=== PATIENT | female | born 1985 | race Caucasian/White ===

== ENCOUNTER 2018-12-14 23:24 | Emergency (ER) | payer MEDICAID ==
[~2018-12-14] VITALS: Ht 147.3 cm; Wt 47.9 kg
[~2018-12-14 23:24] MED LIST: CLIN300C8 PO; OXYC-307 PO; PROM25SU34 PO
[2018-12-14 23:29] VITALS: BP 125/80
[2018-12-14] MEDS ORDERED: ONDA4TAB7 PO (23:32)
== END 2018-12-15 00:30 | disposition home or self-care (01) ==
LOC: ED 12-15 00:24
DX: S93.401A Sprain of unspecified ligament of right ankle, initial encounter (principal); Z90.710 Acquired absence of both cervix and uterus; V00.131A Fall from skateboard, initial encounter; Y93.51 Activity, roller skating (inline) and skateboarding; Y92.410 Unspecified street and highway as the place of occurrence of the external cause; Y99.8 Other external cause status
CPT/HCPCS: 99283

== ENCOUNTER 2018-12-18 13:51 | Emergency (ER) | payer MEDICAID ==
[~2018-12-18] VITALS: Ht 147.3 cm; Wt 47.9 kg
[~2018-12-18 13:51] MED LIST changes: +ONDA4TAB7 PO
[2018-12-18 13:55] VITALS: BP 157/86
[2018-12-18] MEDS ORDERED: LORazepam 1MG TABLET ONE (14:15)
[2018-12-18] MEDS ORDERED: OXYC5TAB3 PO (14:20)
[2018-12-18] MEDS ORDERED: LORazepam 1MG TABLET PO ONE (14:30)
--- NOTE | 2018-12-18 16:14 | NUR ---
Patient/Caregiver given discharge instructions and they have confirmed that they understand the instructions. Patient ambulatory with steady gait.
== END 2018-12-18 16:15 | disposition home or self-care (01) ==
LOC: ED 15:25
DX: F43.23 Adjustment disorder with mixed anxiety and depressed mood (principal); Z90.721 Acquired absence of ovaries, unilateral; F17.200 Nicotine dependence, unspecified, uncomplicated
CPT/HCPCS: 99284

== ENCOUNTER 2018-12-25 22:26 | Emergency (ER) | payer MEDICAID ==
[~2018-12-25] VITALS: Ht 147.3 cm; Wt 47.5 kg
[~2018-12-25 22:26] MED LIST changes: +OXYC5TAB3 PO
[2018-12-25] MEDS ORDERED: SODIUM CHLORIDE FLUSH 10ML SYR IVF ONE (23:00)
[2018-12-25 23:20] LABS: BASOPHILS # (AUTO) 0.03 x10^3/uL (0-0.1); BASOPHILS % (AUTO) 0 % (0-1); EOSINOPHILS % (AUTO) 2 % (1-7); LYMPHOCYTES # (AUTO) 2.32 x10^3/uL (1-3.4); LYMPHOCYTES % (AUTO) 24 % (22-44); MD NO; MEAN CORPUSCULAR HEMOGLOBIN 28.7 pg (27.0-34.8); MEAN CORPUSCULAR HGB CONC 32.8 g/dL (32.4-35.8); MEAN CORPUSCULAR VOLUME 87.4 fL (80-100); MEAN PLATELET VOLUME 7.4 fL (7.4-10.4); MONOCYTES # (AUTO) 0.59 x10^3/uL (0.2-0.8); MONOCYTES % (AUTO) 6 % (2-9); NEUTROPHILS # (AUTO) 6.71 x10^3/uL (1.8-6.8); NEUTROPHILS % (AUTO) 68 % (42-75); PLATELET COUNT 397 x10^3/uL (130-400); RED BLOOD COUNT 4.84 x10^6/uL (3.82-5.3); RED CELL DISTRIBUTION WIDTH 14.6 % (9.6-15.2)
--- NOTE | 2018-12-25 23:21 | NUR ---
PT BIB EMS FROM [facility]. PT RPTS THAT SHE HAD GONE TO [place] TO SEEK HELP WITH DEPRESSION. PT STATES HER COMMITTED SUICIDE LAST MONDAY. PT ADMITS TO DRINKING TODAY BUT DENIES CHRONIC ETOH ABUSE. STATES THAT WHILE IN THE PROCESS OF BEING ADMITTED TO [facility] SHE BECAME +N/V AND FELT THAT SHE NEEDED TO COME TO THE HOSPITAL. [facility] SENT PT TO BE MEDICALLY CLEARED. PT DENIES THOUGHTS OF SI OR ANY HX OF SI. PT AMBULATED UPRIGHT STEADY GAIT TO BATHROOM AND PROVIDED URINE SAMPLE. DR AYALA INTERVIEWED PT AND IS NOT PLACING PT ON LEGAL HOLD AT THIS TIME. CALL LIGHT W/I REACH.
[2018-12-25 23:30] LABS: ALANINE AMINOTRANSFERASE 23 U/L (12-78); ALBUMIN 3.8 g/dL (3.4-5.0); ANION GAP 9 mmol/L (5-15); CALCIUM 8.5 mg/dL (8.5-10.1); CHLORIDE 109 mmol/L (98-107); CREATININE 0.62 mg/dL (0.55-1.02); SALICYLATE LEVEL 2.4 mg/dL (2.8-20.0)
[2018-12-25 23:34] LABS: ALKALINE PHOSPHATASE 61 U/L (45-117); BILIRUBIN,TOTAL 0.2 mg/dL (0.2-1.0); TOTAL PROTEIN 7.8 g/dL (6.4-8.2)
[2018-12-25 23:50] LABS: MICROSCOPIC AUTO
[2018-12-25 23:51] LABS: AMPHETAMINE SCREEN, URINE Negative (Negative); BARBITURATE SCREEN, URINE Negative (Negative); BENZODIAZEPINE SCREEN, URINE Negative (Negative); CANNABINOID SCREEN, URINE Positive (Negative); COCAINE SCREEN, URINE Negative (Negative); METHADONE SCREEN, URINE Negative (Negative); OPIATE SCREEN, URINE Negative (Negative)
[2018-12-25] MEDS ORDERED: LORazepam 1MG TABLET ONE (23:52)
[2018-12-25] MEDS ORDERED: ONDANSETRON ODT 4 MG ONE (23:52)
--- NOTE | 2018-12-25 23:55 | NUR ---
PT MED NOTED FOR ANXIETY AND NAUSEA, WARM BLANKET AND PILLOW PROVIDED. LIGHTS OFF IN ROOM TO PROMOTE REST.
[2018-12-25 23:56] LABS: CULTURE INDICATED? YES
[2018-12-26] MEDS ORDERED: ONDANSETRON ODT 4 MG PO ONE
[2018-12-26] MEDS ORDERED: LORazepam 1MG TABLET PO ONE
[2018-12-26 00:34] VITALS: BP 107/65
--- NOTE | 2018-12-26 00:35 | NUR ---
PT STATED SHE FEELS MUCH BETTER AFTER MEDICATION. VSS AND STATED NO NEEDS AT THIS TIME. WILL CONTINUE TO MONITOR.
--- NOTE | 2018-12-26 01:11 | NUR ---
Patient/Caregiver given discharge instructions and they have confirmed that they understand the instructions. Patient ambulatory with steady gait. TAXI VOUCHER PROVIDED TO [facility]. I ALSO CALLED [facility] TO VERIFY THAT THEY STILL HAD CAPACITY TO ACCEPT A WALK IN.
== END 2018-12-26 01:13 | disposition home or self-care (01) ==
LOC: ED 12-26 01:00
DX: N30.00 Acute cystitis without hematuria (principal); F43.22 Adjustment disorder with anxiety; F17.200 Nicotine dependence, unspecified, uncomplicated; F41.9 Anxiety disorder, unspecified; R10.13 Epigastric pain; R53.83 Other fatigue; Z90.710 Acquired absence of both cervix and uterus; Z87.19 Personal history of other diseases of the digestive system
CPT/HCPCS: 36415; 80053; 80307; 81001; 83690; 85025; 87086; 99283; Q0162

== ENCOUNTER 2019-01-20 08:06 | Emergency (ER) | payer MEDICAID ==
[2019-01-20 08:09] VITALS: BP 102/72
== END 2019-01-20 09:25 | disposition home or self-care (01) ==
LOC: ED 09:01
DX: R21 Rash and other nonspecific skin eruption (principal); F41.9 Anxiety disorder, unspecified; Z90.710 Acquired absence of both cervix and uterus
CPT/HCPCS: 99283

== ENCOUNTER 2019-02-16 15:38 | Emergency (ER) | payer MEDICAID ==
[~2019-02-16] VITALS: Ht 147.3 cm; Wt 47.4 kg
[2019-02-16 15:43] VITALS: BP 129/87
== END 2019-02-16 16:04 | disposition home or self-care (01) ==
LOC: ED 15:49
DX: K02.9 Dental caries, unspecified (principal)
CPT/HCPCS: 99283

== ENCOUNTER 2019-04-10 08:34 | Inpatient (IN) | payer MEDICAID ==
[~2019-04-10] VITALS: Ht 147.3 cm; Wt 45.5 kg
[2019-04-10] MEDS: NICOTINE 14MG/24 HR PATCH.TD24 TD SCH (09:00)
[2019-04-10] MEDS ORDERED: POLYETHYLENE GLYCOL 17 GM PACKET PO PRN (09:00)
[2019-04-10] MEDS ORDERED: BISACODYL 10 MG SUPP PR PRN (09:00)
[2019-04-10] MEDS ORDERED: DOCUSATE 100 MG CAPSULE PO PRN (09:00)
[2019-04-10] MEDS ORDERED: ACETAMINOPHEN 325 MG TABLET PO PRN (09:00)
[2019-04-10 09:24] VITALS: BP 132/73
[2019-04-10] MEDS ORDERED: PLEASE ENTER HEIGHT AND WEIGHT MC SCH (09:30)
[2019-04-10] MEDS: ONDANSETRON ODT 4 MG PO PRN ×3 (10:06→20:44)
[2019-04-10] MEDS ORDERED: IBUPROFEN 200 MG TABLET PO PRN (10:30)
[2019-04-10] MEDS: LORazepam 1MG TABLET PO PRN ×2 (10:54→20:44)
[2019-04-10] MEDS: VENLAFAXINE 75 MG CAP ER PO SCH (10:55)
[2019-04-10] MEDS ORDERED: FOLIC ACID 5 MG/ML IM ONE (12:30)
[2019-04-10] MEDS ORDERED: LORazepam 0.5MG TABLET PO PRN (12:30)
[2019-04-10] MEDS ORDERED: LORazepam 2 MG/ML, 1ML IV PRN ×5 (12:30)
[2019-04-10] MEDS ORDERED: FOLIC ACID 1 MG TABLET PO ONE (12:30)
[2019-04-10] MEDS ORDERED: LORazepam 1MG TABLET PO PRN ×4 (12:30)
[2019-04-10] MEDS: THIAMINE 100MG TABLET PO SCH (13:01)
[2019-04-10] MEDS: MULTIVITAMINS/MINERALS TABLET PO SCH (13:01)
[2019-04-10 13:14] LABS: FREE T4 (FREE THYROXINE) 0.72 ng/dL (0.76-1.46)
[2019-04-10 15:27] VITALS: BP 144/86
[2019-04-10] MEDS: ACAMPROSATE 333 MG TABLET.DR PO SCH ×2 (15:34→20:44)
[2019-04-10] MEDS ORDERED: ONDA4TAB7 PO (15:46)
[2019-04-10] MEDS: OXYcodone IR 5MG TABLET PO PRN (18:02)
[2019-04-10 19:06] VITALS: BP 144/93
[2019-04-11] MEDS: ONDANSETRON ODT 4 MG PO PRN ×3 (02:49→15:15)
[2019-04-11] MEDS: LORazepam 1MG TABLET PO PRN ×5 (02:49→22:39)
[2019-04-11] MEDS: OXYcodone IR 5MG TABLET PO PRN ×3 (06:42→20:37)
[2019-04-11 07:28] VITALS: BP 121/78
[2019-04-11] MEDS: VENLAFAXINE 75 MG CAP ER PO SCH (08:21)
[2019-04-11] MEDS: ACAMPROSATE 333 MG TABLET.DR PO SCH ×4 (08:21→20:36)
[2019-04-11] MEDS: MULTIVITAMINS/MINERALS TABLET PO SCH (08:22)
[2019-04-11] MEDS: THIAMINE 100MG TABLET PO SCH (08:22)
[2019-04-11] MEDS: NICOTINE 14MG/24 HR PATCH.TD24 TD SCH (08:22)
[2019-04-11] MEDS: FOLIC ACID 1 MG TABLET PO SCH (08:22)
[2019-04-11 19:32] VITALS: BP 112/66
[2019-04-12] MEDS: OXYcodone IR 5MG TABLET PO PRN ×2 (01:48→08:09)
[2019-04-12] MEDS: LORazepam 1MG TABLET PO PRN ×2 (03:47→08:08)
[2019-04-12 07:09] VITALS: BP 100/67
[2019-04-12] MEDS: VENLAFAXINE 75 MG CAP ER PO SCH (08:08)
[2019-04-12] MEDS: THIAMINE 100MG TABLET PO SCH (08:08)
[2019-04-12] MEDS: MULTIVITAMINS/MINERALS TABLET PO SCH (08:08)
[2019-04-12] MEDS: ACAMPROSATE 333 MG TABLET.DR PO SCH (08:10)
[2019-04-12] MEDS: FOLIC ACID 1 MG TABLET PO SCH (08:10)
[2019-04-12] MEDS: NICOTINE 14MG/24 HR PATCH.TD24 TD SCH (08:10)
[2019-04-12] MEDS ORDERED: THIAMINE 100 MG in DEXTROSE 5% 50 ML IVPB SCH (09:00)
== END 2019-04-12 12:20 | disposition home or self-care (01) | DRG 753 ==
LOC: 3E 08:56
PROVIDERS: ADMIT Psychiatry & Neurology Psychosomatic Medicine; ATTEND Psychiatry & Neurology Psychosomatic Medicine
DX: F31.30 Bipolar disorder, current episode depressed, mild or moderate severity, unspecified (principal); K85.90 Acute pancreatitis without necrosis or infection, unspecified; L01.00 Impetigo, unspecified; M19.90 Unspecified osteoarthritis, unspecified site; F17.210 Nicotine dependence, cigarettes, uncomplicated; F12.20 Cannabis dependence, uncomplicated; Z53.29 Procedure and treatment not carried out because of patient's decision for other reasons; G89.29 Other chronic pain; F10.20 Alcohol dependence, uncomplicated; N76.0 Acute vaginitis; Z88.5 Allergy status to narcotic agent; Z88.8 Allergy status to other drugs, medicaments and biological substances; Z88.1 Allergy status to other antibiotic agents; Z84.1 Family history of disorders of kidney and ureter; Z82.49 Family history of ischemic heart disease and other diseases of the circulatory system; Z82.5 Family history of asthma and other chronic lower respiratory diseases
CPT/HCPCS: 36415; 82140; 82607; 84439; 84443; 93005; Q0162

== ENCOUNTER 2019-04-15 02:02 | Emergency (ER) | payer MEDICAID ==
[~2019-04-15] VITALS: Ht 147.3 cm; Wt 46.3 kg
[2019-04-15 02:41] LABS: CLUE CELLS NONE SEEN (NONE SEEN); WET PREP WBCS NONE SEEN (FEW)
[2019-04-15 03:20] VITALS: BP 120/68
== END 2019-04-15 03:23 | disposition home or self-care (01) ==
LOC: ED 03:17
DX: A64 Unspecified sexually transmitted disease (principal); F17.210 Nicotine dependence, cigarettes, uncomplicated
CPT/HCPCS: 87210; 87491; 87591; 87808; 99283

== ENCOUNTER 2019-05-07 14:01 | Emergency (ER) | payer MEDICAID ==
[~2019-05-07] VITALS: Ht 147.3 cm; Wt 46.1 kg
[2019-05-07 14:02] VITALS: BP 125/75
--- NOTE | 2019-05-07 14:40 | NUR ---
Patient given discharge instructions and they have confirmed that they understand the instructions. Patient ambulatory with steady gait.
== END 2019-05-07 14:41 | disposition home or self-care (01) ==
LOC: ED 14:14
DX: K02.9 Dental caries, unspecified (principal); F32.9 Major depressive disorder, single episode, unspecified; G89.29 Other chronic pain; F41.1 Generalized anxiety disorder
CPT/HCPCS: 93005; 99283

== ENCOUNTER 2019-07-23 12:06 | Emergency (ER) | payer MEDICAID ==
[~2019-07-23] VITALS: Ht 147.3 cm; Wt 46.0 kg
[2019-07-23 12:08] VITALS: BP 146/85
--- NOTE | 2019-07-23 12:12 | NUR ---
Pt here for a pancreatitis flare up. Pt reports that lost a family member recently and is causing the flare up. Pt reports severe pain and discomfort with palpation. Pt denies drinking but does smoke. Pt was given 150mcg of fentanyl en route by ems. Pt not providing much information as she remains on phone. RN has asked patient 3 times to please end her call and texts and no resolve. Pt did put phone down for .
[2019-07-23] MEDS ORDERED: ONDANSETRON 2MG/ML, 2ML ONE (12:22)
[2019-07-23 12:43] LABS: BASOPHILS # (AUTO) 0.02 x10^3/uL (0-0.1); BASOPHILS % (AUTO) 0 % (0-1); EOSINOPHILS # (AUTO) 0.02 x10^3/uL (0-0.4); EOSINOPHILS % (AUTO) 0 % (1-7); LYMPHOCYTES # (AUTO) 1.43 x10^3/uL (1-3.4); LYMPHOCYTES % (AUTO) 21 % (22-44); MD NO; MEAN CORPUSCULAR HEMOGLOBIN 29.3 pg (27.0-34.8); MEAN CORPUSCULAR HGB CONC 33.9 g/dL (32.4-35.8); MEAN CORPUSCULAR VOLUME 86.6 fL (80-100); MEAN PLATELET VOLUME 7.1 fL (7.4-10.4); MONOCYTES # (AUTO) 0.33 x10^3/uL (0.2-0.8); MONOCYTES % (AUTO) 5 % (2-9); NEUTROPHILS # (AUTO) 4.95 x10^3/uL (1.8-6.8); NEUTROPHILS % (AUTO) 73 % (42-75); PLATELET COUNT 483 x10^3/uL (130-400); RED BLOOD COUNT 5.18 x10^6/uL (3.82-5.3); RED CELL DISTRIBUTION WIDTH 15.3 % (9.6-15.2)
[2019-07-23 12:47] LABS: ALANINE AMINOTRANSFERASE 29 U/L (12-78); ALBUMIN 4.1 g/dL (3.4-5.0); ANION GAP 8 mmol/L (5-15); CALCIUM 9.2 mg/dL (8.5-10.1); CHLORIDE 107 mmol/L (98-107); CREATININE 0.65 mg/dL (0.55-1.02)
[2019-07-23 12:49] LABS: ALKALINE PHOSPHATASE 99 U/L (45-117); BILIRUBIN,TOTAL 0.6 mg/dL (0.2-1.0); TOTAL PROTEIN 8.7 g/dL (6.4-8.2)
[2019-07-23] MEDS ORDERED: SODIUM CHLORIDE 0.9% 1,000 ML IV ONE (13:00)
[2019-07-23] MEDS ORDERED: ONDANSETRON 2MG/ML, 2ML IVPush ONE (13:00)
[2019-07-23] MEDS ORDERED: SODIUM CHLORIDE 0.9% 1,000ML IVBOLUS ONE (13:00)
[2019-07-23] MEDS ORDERED: SODIUM CHLORIDE FLUSH 10ML SYR IVF ONE (13:30)
[2019-07-23] MEDS ORDERED: MAALOX/HYOSCYAMINE/LIDOCAINE 45 ML BTL PO ONE (13:30)
[2019-07-23] MEDS ORDERED: MAALOX/HYOSCYAMINE/LIDOCAINE 45 ML BTL ONE (13:48)
--- NOTE | 2019-07-23 13:50 | NUR ---
TASK RN: DC EDUCATION PROVIDED, PT DEMONSTRATES UNDERSTANDING. PT AMBULATED STEADILY TO DC WITH RN AND FRIEND.
== END 2019-07-23 13:52 | disposition home or self-care (01) ==
LOC: ED 13:45
DX: K52.9 Noninfective gastroenteritis and colitis, unspecified (principal); F17.200 Nicotine dependence, unspecified, uncomplicated; R11.2 Nausea with vomiting, unspecified; Z90.710 Acquired absence of both cervix and uterus
CPT/HCPCS: 36415; 74022; 80053; 83690; 85025; 96361; 96374; 99284; J2405; J7030

== ENCOUNTER 2019-08-02 08:49 | Emergency (ER) | payer MEDICAID ==
[~2019-08-02] VITALS: Ht 147.3 cm; Wt 46.5 kg
[2019-08-02 09:08] VITALS: BP 111/69
[2019-08-02 09:55] LABS: BASOPHILS # (AUTO) 0.04 x10^3/uL (0-0.1); BASOPHILS % (AUTO) 1 % (0-1); EOSINOPHILS # (AUTO) 0.26 x10^3/uL (0-0.4); EOSINOPHILS % (AUTO) 4 % (1-7); LYMPHOCYTES # (AUTO) 1.99 x10^3/uL (1-3.4); LYMPHOCYTES % (AUTO) 29 % (22-44); MD NO; MEAN CORPUSCULAR HEMOGLOBIN 29.6 pg (27.0-34.8); MEAN CORPUSCULAR HGB CONC 33.6 g/dL (32.4-35.8); MEAN CORPUSCULAR VOLUME 88.2 fL (80-100); MEAN PLATELET VOLUME 7.1 fL (7.4-10.4); MONOCYTES # (AUTO) 0.54 x10^3/uL (0.2-0.8); MONOCYTES % (AUTO) 8 % (2-9); NEUTROPHILS # (AUTO) 3.99 x10^3/uL (1.8-6.8); NEUTROPHILS % (AUTO) 59 % (42-75); PLATELET COUNT 304 x10^3/uL (130-400); RED BLOOD COUNT 5.17 x10^6/uL (3.82-5.3)
[2019-08-02 10:08] LABS: ALBUMIN 3.9 g/dL (3.4-5.0); ANION GAP 9 mmol/L (5-15); CALCIUM 9.7 mg/dL (8.5-10.1); CHLORIDE 100 mmol/L (98-107)
[2019-08-02 10:13] LABS: ALANINE AMINOTRANSFERASE 32 U/L (12-78); ALKALINE PHOSPHATASE 89 U/L (45-117); BILIRUBIN,TOTAL 1.3 mg/dL (0.2-1.0); CREATININE 0.69 mg/dL (0.55-1.02); TOTAL PROTEIN 8.5 g/dL (6.4-8.2)
--- NOTE | 2019-08-02 10:31 | NUR ---
NO ANSWER WHEN CALLED FOR ROOM AT THIS TIME.
--- NOTE | 2019-08-02 10:49 | NUR ---
Sinan chan in [facility] - 08/02/19 at 1049 by KJ TO ROOM FROM LOBBY. FLORES
--- NOTE | 2019-08-02 10:49 | NUR ---
NO ANSWER, SECOND CALL
--- NOTE | 2019-08-02 11:03 | NUR ---
NO ANS X 3
== END 2019-08-02 11:05 | disposition left against medical advice (07) ==
LOC: ED 10:59
DX: R30.0 Dysuria (principal); Z90.710 Acquired absence of both cervix and uterus
CPT/HCPCS: 36415; 80053; 85025; 99283

== ENCOUNTER 2019-08-03 06:16 | Emergency (ER) | payer MEDICAID ==
[~2019-08-03] VITALS: Ht 147.3 cm; Wt 46.0 kg
[2019-08-03 06:19] VITALS: BP 144/97
[2019-08-03 07:30] LABS: CULTURE INDICATED? YES; MICROSCOPIC INDICATED
--- NOTE | 2019-08-03 07:40 | NUR ---
MAPPING EDITOR ATTEMPTED TO RECHECK PT'S VITALS WHILE IN LOBBY. NO ANSWER TO TRIAGE X 1.
--- NOTE | 2019-08-03 08:11 | NUR ---
SENIOR APPLICATIONS ANALYST: PT AMBULATORY WITH STEADY GAIT TO TO ROOM AT THIS TIME.
--- NOTE | 2019-08-03 08:39 | NUR ---
PT AMBULATED TO BR. UA SAMPLE COLLECTED AND SENT TO LAB. PELVIC SET UP FOR PT
[2019-08-03 09:22] LABS: CLUE CELLS PRESENT (NONE SEEN); WET PREP WBCS MODERATE (FEW)
--- NOTE | 2019-08-03 10:00 | NUR ---
FIRST CONTACT WITH PT. Patient/Caregiver given discharge instructions and they have confirmed that they understand the instructions. Patient ambulatory with steady gait. PT LEFT WITH ALL PERSONAL BELONGINGS.
== END 2019-08-03 10:03 | disposition home or self-care (01) ==
LOC: ED 07:27
DX: N76.0 Acute vaginitis (principal)
CPT/HCPCS: 81001; 87086; 87210; 87491; 87591; 87808; 99283

== ENCOUNTER 2019-09-03 15:02 | Inpatient (IN) | payer MEDICAID ==
[~2019-09-03] VITALS: Ht 147.3 cm; Wt 42.7 kg
--- NOTE | 2019-09-03 15:13 | NUR ---
THIS IS A 34 YO FEMALE BIB [facility] FOR N/V FOR THE LAST DAY, DENIES DIARRHEA, NO FEVERS AT HOME. PATIENT STATES "I HAVE A HISOTRY OF PANCREATITIS AND IT FEELS LIKE A FLARE UP". PATIENT C/O EPIGASTRIC PAIN, RATED 8/10. PIV PLACED BY SANDRA, GIVEN 50MCG FENTANYL AND 4MG ZOFRAN EN ROUTE. PATIENT STATES "I WAS IN REHAB FOR ALCOHOL IN MARCH AND I'VE BEEN SOBER SINCE THEN, BUT I RELAPSED WHEN MY GIRLFRIEND LAST WEEK. I ALS OHAVEN'T SMOKED IN 3-4 DAYS". PATIENT STATES LAST DRINK WAS 24 HOURS AGO. VSS, NAD AT THIS TIME. SPO2 AND BP MONITORING IN PLACE. UA COLLECTED
[2019-09-03] MEDS ORDERED: MORPHINE SULFATE 4 MG/ML, 1ML ONE ×2 (15:27→16:54)
[2019-09-03] MEDS ORDERED: ONDANSETRON 2MG/ML, 2ML ONE (15:27)
[2019-09-03 15:28] LABS: BASOPHILS # (AUTO) 0.03 x10^3/uL (0-0.1); BASOPHILS % (AUTO) 0 % (0-1); EOSINOPHILS # (AUTO) 0.31 x10^3/uL (0-0.4); EOSINOPHILS % (AUTO) 4 % (1-7); LYMPHOCYTES % (AUTO) 20 % (22-44); MD NO; MEAN CORPUSCULAR HEMOGLOBIN 28.9 pg (27.0-34.8); MEAN CORPUSCULAR HGB CONC 32.9 g/dL (32.4-35.8); MEAN CORPUSCULAR VOLUME 87.8 fL (80-100); MEAN PLATELET VOLUME 7.2 fL (7.4-10.4); MONOCYTES # (AUTO) 0.39 x10^3/uL (0.2-0.8); MONOCYTES % (AUTO) 5 % (2-9); NEUTROPHILS # (AUTO) 5.14 x10^3/uL (1.8-6.8); NEUTROPHILS % (AUTO) 70 % (42-75); PLATELET COUNT 251 x10^3/uL (130-400); RED BLOOD COUNT 5.68 x10^6/uL (3.82-5.3); RED CELL DISTRIBUTION WIDTH 14.9 % (9.6-15.2)
[2019-09-03] MEDS ORDERED: ONDANSETRON 2MG/ML, 2ML IVPush ONE (15:30)
[2019-09-03] MEDS ORDERED: SODIUM CHLORIDE 0.9% 1,000ML IVBOLUS ONE (15:30)
[2019-09-03] MEDS ORDERED: SODIUM CHLORIDE FLUSH 10ML SYR IVF ONE (15:30)
[2019-09-03 15:41] LABS: ALANINE AMINOTRANSFERASE 38 U/L (12-78); ALBUMIN 3.8 g/dL (3.4-5.0); ANION GAP 11 mmol/L (5-15); CALCIUM 9.2 mg/dL (8.5-10.1); CHLORIDE 99 mmol/L (98-107); CREATININE 0.65 mg/dL (0.55-1.02)
[2019-09-03 15:43] LABS: ALKALINE PHOSPHATASE 91 U/L (45-117); TOTAL PROTEIN 8.5 g/dL (6.4-8.2)
[2019-09-03] MEDS: MORPHINE SULFATE 4 MG/ML, 1ML IVPush PRN ×2 (15:45→17:10)
--- NOTE | 2019-09-03 15:47 | NUR ---
PATIENT MEDICATED PER EMAR, TOLERATED WELL
[2019-09-03] MEDS ORDERED: PROMETHAZINE 25 MG/ML, 1ML ONE (16:54)
[2019-09-03] MEDS ORDERED: PROMETHAZINE 25 MG/ML, 1ML IM ONE (17:00)
--- NOTE | 2019-09-03 17:13 | NUR ---
PATIENT MEDICATED PER EMAR FOR NAUSEA AND PAIN
--- NOTE | 2019-09-03 17:48 | NUR ---
REPORT GIVEN TO KYLAH GTZ. PLAN OF CARE DISCUSSED
[2019-09-03 18:22] VITALS: BP 146/93
[2019-09-03 18:46] VITALS: BP 153/97
[2019-09-03] MEDS ORDERED: THIAMINE 100 MG in SODIUM CHLORIDE 0.9% 50 ML IV SCH (20:00)
[2019-09-03] MEDS ORDERED: ONDANSETRON 2MG/ML, 2ML IVPush PRN (20:00)
[2019-09-03] MEDS ORDERED: NICOTINE 7 MG/24 HR PATCH.TD24 TD SCH (20:00)
[2019-09-03] MEDS ORDERED: ENOXAPARIN 40 MG/0.4 ML SQ SCH ×2 (20:00)
[2019-09-03] MEDS ORDERED: ACETAMINOPHEN 325 MG TABLET PO PRN (20:00)
[2019-09-03] MEDS: morphine SULFATE 10 MG/ML, 1ML IVPush PRN (20:53)
[2019-09-03 21:41] LABS: CULTURE INDICATED? YES; MICROSCOPIC INDICATED
[2019-09-03] MEDS: SODIUM CHLORIDE 0.9% 1,000 ML IV SCH (23:13)
[2019-09-03] MEDS: ONDANSETRON ODT 4 MG PO PRN (23:13)
[2019-09-04] MEDS: morphine SULFATE 10 MG/ML, 1ML IVPush PRN ×4 (00:06→13:04)
[2019-09-04 00:33] VITALS: BP 131/79
[2019-09-04 06:10] LABS: BASOPHILS # (AUTO) 0.04 x10^3/uL (0-0.1); BASOPHILS % (AUTO) 1 % (0-1); EOSINOPHILS # (AUTO) 0.46 x10^3/uL (0-0.4); EOSINOPHILS % (AUTO) 9 % (1-7); LYMPHOCYTES # (AUTO) 2.35 x10^3/uL (1-3.4); LYMPHOCYTES % (AUTO) 44 % (22-44); MD NO; MEAN CORPUSCULAR HEMOGLOBIN 29.4 pg (27.0-34.8); MEAN CORPUSCULAR HGB CONC 33.4 g/dL (32.4-35.8); MEAN CORPUSCULAR VOLUME 87.9 fL (80-100); MEAN PLATELET VOLUME 7.6 fL (7.4-10.4); MONOCYTES # (AUTO) 0.37 x10^3/uL (0.2-0.8); MONOCYTES % (AUTO) 7 % (2-9); NEUTROPHILS # (AUTO) 2.11 x10^3/uL (1.8-6.8); NEUTROPHILS % (AUTO) 40 % (42-75); PLATELET COUNT 191 x10^3/uL (130-400); RED BLOOD COUNT 4.67 x10^6/uL (3.82-5.3); RED CELL DISTRIBUTION WIDTH 14.9 % (9.6-15.2)
[2019-09-04 06:17] LABS: ALANINE AMINOTRANSFERASE 33 U/L (12-78); ALBUMIN 2.9 g/dL (3.4-5.0); ANION GAP 9 mmol/L (5-15); CHLORIDE 103 mmol/L (98-107)
[2019-09-04 06:29] LABS: ALKALINE PHOSPHATASE 70 U/L (45-117); BILIRUBIN,TOTAL 0.8 mg/dL (0.2-1.0); CHOL/HDL RATIO 1.9; CHOLESTEROL, TOTAL 144 mg/dL (140-239); CREATININE 0.58 mg/dL (0.55-1.02); HDL CHOL % 52 % (28-40); HDL CHOLESTEROL (DIRECT) 75 mg/dL (40-60); LDL CHOLESTEROL,CALCULATED 54 mg/dL (54-169); LDL/HDL RATIO 0.7 (0.5-3.0); TOTAL PROTEIN 6.6 g/dL (6.4-8.2); TRIGLYCERIDES 74 mg/dL (50-200); VLDL CHOLESTEROL 15 mg/dL (0-25)
[2019-09-04 07:04] VITALS: BP 117/66
[2019-09-04] MEDS: SODIUM CHLORIDE 0.9% 1,000 ML IV SCH ×2 (07:14→17:06)
[2019-09-04] MEDS ORDERED: PANTOPRAZOLE 40 MG IV IVPush SCH (07:30)
[2019-09-04] MEDS: ONDANSETRON ODT 4 MG PO PRN (13:03)
[2019-09-04 13:44] VITALS: BP 107/67
[2019-09-04] MEDS ORDERED: ENOXAPARIN 40 MG/0.4 ML SQ SCH (20:00)
== END 2019-09-04 18:09 | disposition home or self-care (01) | DRG 282 ==
LOC: ED 15:51 → EDIP 16:47 → 3N 17:41
PROVIDERS: ADMIT Internal Medicine; ATTEND Internal Medicine
DX: K85.20 Alcohol induced acute pancreatitis without necrosis or infection (principal); E46 Unspecified protein-calorie malnutrition; E87.1 Hypo-osmolality and hyponatremia; E86.0 Dehydration; Z68.1 Body mass index [BMI] 19.9 or less, adult; F12.90 Cannabis use, unspecified, uncomplicated; F17.200 Nicotine dependence, unspecified, uncomplicated; F31.9 Bipolar disorder, unspecified; F41.1 Generalized anxiety disorder; G89.29 Other chronic pain; M19.90 Unspecified osteoarthritis, unspecified site; Z82.49 Family history of ischemic heart disease and other diseases of the circulatory system; Z90.710 Acquired absence of both cervix and uterus; Z71.6 Tobacco abuse counseling
CPT/HCPCS: 36415; 80053; 80061; 81001; 83690; 84443; 85025; 87086; G0378; J2405; J2550; J3411; Q0162; C9113; J2270; J7030

== ENCOUNTER 2019-10-12 13:02 | Inpatient (IN) | payer MEDICAID ==
[~2019-10-12] VITALS: Ht 147.3 cm; Wt 48.0 kg
[2019-10-12] MEDS ORDERED: ONDANSETRON 2MG/ML, 2ML ONE (13:07)
--- NOTE | 2019-10-12 13:16 | NUR ---
PT ON [facility] IV ACCESS OBTAINED BY EMS. CONTINUATION OF EMS LITER OF NS. UPON COMPLETION OF EMS LITER PT HR WILL BE RE-EVALUATED FOR NEED FOR SECOND LITER ORDERED BY ER MD
[2019-10-12 13:28] LABS: BASOPHILS # (AUTO) 0.04 x10^3/uL (0-0.1); BASOPHILS % (AUTO) 1 % (0-1); EOSINOPHILS # (AUTO) 0.31 x10^3/uL (0-0.4); EOSINOPHILS % (AUTO) 4 % (1-7); LYMPHOCYTES # (AUTO) 3.56 x10^3/uL (1-3.4); LYMPHOCYTES % (AUTO) 42 % (22-44); MD NO; MEAN CORPUSCULAR HEMOGLOBIN 29.2 pg (27.0-34.8); MEAN CORPUSCULAR HGB CONC 32.9 g/dL (32.4-35.8); MEAN CORPUSCULAR VOLUME 88.7 fL (80-100); MEAN PLATELET VOLUME 6.6 fL (7.4-10.4); MONOCYTES # (AUTO) 0.56 x10^3/uL (0.2-0.8); MONOCYTES % (AUTO) 7 % (2-9); NEUTROPHILS # (AUTO) 3.93 x10^3/uL (1.8-6.8); NEUTROPHILS % (AUTO) 47 % (42-75); PLATELET COUNT 430 x10^3/uL (130-400); RED BLOOD COUNT 5.29 x10^6/uL (3.82-5.3); RED CELL DISTRIBUTION WIDTH 16.1 % (9.6-15.2)
[2019-10-12] MEDS ORDERED: HALOPERIDOL 5 MG/ML ONE (13:29)
[2019-10-12] MEDS ORDERED: MORPHINE SULFATE 4 MG/ML, 1ML ONE ×2 (13:29→15:07)
[2019-10-12] MEDS ORDERED: METOCLOPRAMIDE 5 MG/ML, 2ML ONE ×2 (13:29→14:31)
[2019-10-12] MEDS ORDERED: ONDANSETRON 2MG/ML, 2ML IVPush ONE (13:30)
[2019-10-12] MEDS ORDERED: SODIUM CHLORIDE FLUSH 10ML SYR IVF ONE (13:30)
[2019-10-12] MEDS ORDERED: SODIUM CHLORIDE 0.9% 1,000ML IVBOLUS ONE (13:30)
[2019-10-12] MEDS ORDERED: HALOPERIDOL 5 MG/ML IV ONE (13:30)
[2019-10-12] MEDS ORDERED: METOCLOPRAMIDE 5 MG/ML, 2ML IVPush ONE ×2 (13:30→14:30)
[2019-10-12] MEDS: MORPHINE SULFATE 4 MG/ML, 1ML IVPush PRN ×2 (13:32→15:09)
[2019-10-12 13:40] LABS: ALANINE AMINOTRANSFERASE 33 U/L (12-78); ALBUMIN 4.1 g/dL (3.4-5.0); ANION GAP 15 mmol/L (5-15); CALCIUM 8.7 mg/dL (8.5-10.1); CHLORIDE 103 mmol/L (98-107); CREATININE 0.75 mg/dL (0.55-1.02)
--- NOTE | 2019-10-12 13:40 | NUR ---
PT MEDICATED PER ORDER. PT UP TO RESTROOM. AMBULATES WITH A STEADY GAIT.
--- NOTE | 2019-10-12 13:44 | NUR ---
PT PLACED ON CARDIAC MONITORING FOR HAND MOLDER AND CASTER. TECH IN ROOM TO COMPLETE EKG
[2019-10-12 13:45] LABS: ALKALINE PHOSPHATASE 81 U/L (45-117); BILIRUBIN,TOTAL 0.4 mg/dL (0.2-1.0); TOTAL PROTEIN 8.5 g/dL (6.4-8.2)
[2019-10-12] MEDS ORDERED: FAMOTIDINE 20 MG/2 ML IVPush ONE (14:30)
[2019-10-12] MEDS ORDERED: FAMOTIDINE 20 MG/2 ML ONE (14:34)
--- NOTE | 2019-10-12 15:36 | NUR ---
PT STILL NAUSEATED AT THIS TIME. DISCUSSED POC WITH PT. PT AGREES TO POC
[2019-10-12] MEDS ORDERED: PROMETHAZINE 25 MG/ML, 1ML IM PRN (16:00)
[2019-10-12] MEDS ORDERED: OXYcodone IR 5MG TABLET PO PRN (16:00)
[2019-10-12] MEDS ORDERED: FOLIC ACID 5 MG/ML IM ONE (16:00)
[2019-10-12] MEDS ORDERED: ACETAMINOPHEN 325 MG TABLET PO PRN (16:00)
[2019-10-12] MEDS ORDERED: LORazepam 0.5MG TABLET PO PRN (16:00)
[2019-10-12] MEDS ORDERED: LORazepam 2 MG/ML, 1ML IV PRN ×5 (16:00)
[2019-10-12] MEDS ORDERED: LORazepam 1MG TABLET PO PRN ×4 (16:00)
[2019-10-12] MEDS ORDERED: hydrALAzine 20 MG/ML, 1ML IVPush PRN (16:00)
[2019-10-12] MEDS ORDERED: ONDANSETRON ODT 4 MG PO PRN (16:00)
[2019-10-12 16:40] VITALS: BP 129/84
[2019-10-12] MEDS: PANTOPRAZOLE 40 MG IV IVPush SCH (17:04)
[2019-10-12] MEDS: LACTATED RINGERS 1,000 ML IV SCH (17:04)
[2019-10-12 18:59] VITALS: BP 124/86
[2019-10-12] MEDS: ONDANSETRON 2MG/ML, 2ML IVPush PRN (20:05)
[2019-10-12] MEDS: morphine SULFATE 10 MG/ML, 1ML IVPush PRN ×2 (20:06→23:52)
[2019-10-12] MEDS ORDERED: No home meds (20:33)
[2019-10-13] MEDS: LACTATED RINGERS 1,000 ML IV SCH ×3 (00:10→16:16)
[2019-10-13 00:13] VITALS: BP 129/78
[2019-10-13] MEDS: ONDANSETRON 2MG/ML, 2ML IVPush PRN ×3 (02:30→16:16)
[2019-10-13] MEDS: morphine SULFATE 10 MG/ML, 1ML IVPush PRN ×5 (03:15→20:54)
[2019-10-13] MEDS: PANTOPRAZOLE 40 MG IV IVPush SCH ×2 (04:33→16:16)
[2019-10-13 04:42] LABS: BASOPHILS # (AUTO) 0.02 x10^3/uL (0-0.1); BASOPHILS % (AUTO) 0 % (0-1); EOSINOPHILS # (AUTO) 0.01 x10^3/uL (0-0.4); EOSINOPHILS % (AUTO) 0 % (1-7); LYMPHOCYTES # (AUTO) 2.05 x10^3/uL (1-3.4); LYMPHOCYTES % (AUTO) 21 % (22-44); MD NO; MEAN CORPUSCULAR HEMOGLOBIN 29.3 pg (27.0-34.8); MEAN CORPUSCULAR HGB CONC 33.2 g/dL (32.4-35.8); MEAN PLATELET VOLUME 7.2 fL (7.4-10.4); MONOCYTES # (AUTO) 0.82 x10^3/uL (0.2-0.8); MONOCYTES % (AUTO) 8 % (2-9); NEUTROPHILS # (AUTO) 6.87 x10^3/uL (1.8-6.8); NEUTROPHILS % (AUTO) 70 % (42-75); PLATELET COUNT 313 x10^3/uL (130-400); RED BLOOD COUNT 4.31 x10^6/uL (3.82-5.3); RED CELL DISTRIBUTION WIDTH 16.1 % (9.6-15.2)
[2019-10-13 04:51] LABS: ALBUMIN 3.2 g/dL (3.4-5.0); ANION GAP 8 mmol/L (5-15); CALCIUM 7.8 mg/dL (8.5-10.1); CHLORIDE 101 mmol/L (98-107)
[2019-10-13 04:56] LABS: ALANINE AMINOTRANSFERASE 27 U/L (12-78); ALKALINE PHOSPHATASE 67 U/L (45-117); BILIRUBIN,TOTAL 0.9 mg/dL (0.2-1.0); CREATININE 0.44 mg/dL (0.55-1.02); TOTAL PROTEIN 6.7 g/dL (6.4-8.2)
[2019-10-13 07:18] VITALS: BP 118/76
[2019-10-13] MEDS ORDERED: THIAMINE 200 MG in DEXTROSE 5% 50 ML IVPB ONE (12:00)
[2019-10-13 12:43] VITALS: BP 120/85
[2019-10-13] MEDS ORDERED: MAGNESIUM SULFATE PMX 2GM/50ML 50 ML IV ONE (17:00)
[2019-10-13 19:19] VITALS: BP 111/82
[2019-10-14 01:07] VITALS: BP 130/89
[2019-10-14] MEDS: ONDANSETRON 2MG/ML, 2ML IVPush PRN ×2 (01:43→09:23)
[2019-10-14] MEDS: LACTATED RINGERS 1,000 ML IV SCH ×3 (01:44→14:36)
[2019-10-14] MEDS: morphine SULFATE 10 MG/ML, 1ML IVPush PRN ×4 (01:52→14:05)
[2019-10-14] MEDS: PANTOPRAZOLE 40 MG IV IVPush SCH ×2 (04:27→15:06)
[2019-10-14 05:23] LABS: BASOPHILS # (AUTO) 0.05 x10^3/uL (0-0.1); BASOPHILS % (AUTO) 1 % (0-1); EOSINOPHILS # (AUTO) 0.26 x10^3/uL (0-0.4); EOSINOPHILS % (AUTO) 4 % (1-7); LYMPHOCYTES % (AUTO) 42 % (22-44); MD NO; MEAN CORPUSCULAR HEMOGLOBIN 29.1 pg (27.0-34.8); MEAN CORPUSCULAR VOLUME 88.2 fL (80-100); MEAN PLATELET VOLUME 8.4 fL (7.4-10.4); MONOCYTES # (AUTO) 0.49 x10^3/uL (0.2-0.8); MONOCYTES % (AUTO) 8 % (2-9); NEUTROPHILS # (AUTO) 2.72 x10^3/uL (1.8-6.8); NEUTROPHILS % (AUTO) 45 % (42-75); PLATELET COUNT 196 x10^3/uL (130-400); RED BLOOD COUNT 4.43 x10^6/uL (3.82-5.3); RED CELL DISTRIBUTION WIDTH 15.7 % (9.6-15.2)
[2019-10-14 05:29] LABS: CHLORIDE 102 mmol/L (98-107)
[2019-10-14 05:47] LABS: ALANINE AMINOTRANSFERASE 30 U/L (12-78); ALBUMIN 2.9 g/dL (3.4-5.0); ALKALINE PHOSPHATASE 63 U/L (45-117); ANION GAP 12 mmol/L (5-15); BILIRUBIN,TOTAL 0.7 mg/dL (0.2-1.0); CREATININE 0.42 mg/dL (0.55-1.02); TOTAL PROTEIN 6.3 g/dL (6.4-8.2)
[2019-10-14 07:17] VITALS: BP 149/93
[2019-10-14] MEDS ORDERED: POTASSIUM ACID PHOSPHATE 500 MG TABLET.SOL PO SCH (11:00)
[2019-10-14] MEDS ORDERED: MAGNESIUM SULFATE PMX 2GM/50ML 50 ML IV ONE (11:00)
[2019-10-14 13:29] VITALS: BP 137/84
[2019-10-14] MEDS ORDERED: THIA100T67 PO (14:17)
[2019-10-14] MEDS ORDERED: OMEP-110 PO (14:17)
[2019-10-14] MEDS ORDERED: MAGN400T50 PO (14:17)
[2019-10-15] MEDS ORDERED: MAGNESIUM OXIDE 400 MG TABLET PO SCH (09:00)
== END 2019-10-14 16:25 | disposition home or self-care (01) | DRG 282 ==
LOC: ED 13:31 → EDIP 15:37 → 3N 16:41
PROVIDERS: ADMIT Hospitalist; ATTEND Internal Medicine
DX: K85.20 Alcohol induced acute pancreatitis without necrosis or infection (principal); K92.0 Hematemesis; E83.42 Hypomagnesemia; K76.0 Fatty (change of) liver, not elsewhere classified; E83.51 Hypocalcemia; Q45.3 Other congenital malformations of pancreas and pancreatic duct; F10.229 Alcohol dependence with intoxication, unspecified; E87.1 Hypo-osmolality and hyponatremia; F12.90 Cannabis use, unspecified, uncomplicated; F17.200 Nicotine dependence, unspecified, uncomplicated; Z90.710 Acquired absence of both cervix and uterus; Z88.8 Allergy status to other drugs, medicaments and biological substances; Z71.6 Tobacco abuse counseling
CPT/HCPCS: 36415; 76700; 80053; 80307; 82150; 83690; 83735; 84100; 84703; 85014; 85018; 85025; 93005; 96374; G0378; J2405; J3411; C9113; J1630; J2270; J2765; J3475; J3490; J7030; J7120

== ENCOUNTER 2019-10-19 13:30 | Emergency (ER) | payer MEDICAID ==
[~2019-10-19] VITALS: Ht 147.3 cm; Wt 47.0 kg
[~2019-10-19 13:30] MED LIST changes: +MAGN400T50 PO; +No home meds; +OMEP-110 PO; +THIA100T67 PO
[2019-10-19 13:32] VITALS: BP 107/78
--- NOTE | 2019-10-19 14:51 | NUR ---
report to lorena killian rn. as
--- NOTE | 2019-10-19 14:52 | NUR ---
Report received from KYLAH Chappell. Plan of care discussed.
== END 2019-10-19 16:04 | disposition home or self-care (01) ==
LOC: ED 15:11
DX: K08.89 Other specified disorders of teeth and supporting structures (principal); Z90.710 Acquired absence of both cervix and uterus
CPT/HCPCS: 99283

== ENCOUNTER 2019-11-21 13:04 | Inpatient (IN) | payer MEDICAID ==
[~2019-11-21] VITALS: Ht 147.3 cm; Wt 52.9 kg
[2019-11-21] MEDS ORDERED: SODIUM CHLORIDE 0.9% 1,000ML IVBOLUS ONE (13:30)
[2019-11-21] MEDS ORDERED: PROMETHAZINE 25 MG/ML, 1ML IM ONE (13:30)
[2019-11-21] MEDS ORDERED: DIPHENHYDRAMINE 50 MG/ML, 1ML IVPush ONE (13:30)
[2019-11-21] MEDS ORDERED: METOCLOPRAMIDE 5 MG/ML, 2ML IVPush ONE (13:30)
--- NOTE | 2019-11-21 13:30 | NUR ---
LATE ENTRY FOR 1330. PT WAS BIB EMS FOR POSSIBLE SEIZURE. PT STATES HER BF WITNESSED. PT DOES NOT REMEMBE. PT HAS N/V. DENIES CP OR SOB. DROWSY AND LETHARGIC AT THIS TIME. PT NOT IN RESP DISTRESS. VSS. HX OF PANCREATITIS.
[2019-11-21 13:52] LABS: BASOPHILS # (AUTO) 0.04 x10^3/uL (0-0.1); BASOPHILS % (AUTO) 1 % (0-1); EOSINOPHILS # (AUTO) 0.25 x10^3/uL (0-0.4); EOSINOPHILS % (AUTO) 4 % (1-7); LYMPHOCYTES # (AUTO) 3.16 x10^3/uL (1-3.4); LYMPHOCYTES % (AUTO) 49 % (22-44); MD NO; MEAN CORPUSCULAR HEMOGLOBIN 29.6 pg (27.0-34.8); MEAN CORPUSCULAR HGB CONC 33.7 g/dL (32.4-35.8); MEAN CORPUSCULAR VOLUME 87.9 fL (80-100); MEAN PLATELET VOLUME 7.4 fL (7.4-10.4); MONOCYTES % (AUTO) 8 % (2-9); NEUTROPHILS # (AUTO) 2.48 x10^3/uL (1.8-6.8); NEUTROPHILS % (AUTO) 39 % (42-75); PLATELET COUNT 343 x10^3/uL (130-400); RED BLOOD COUNT 4.94 x10^6/uL (3.82-5.3); RED CELL DISTRIBUTION WIDTH 15.6 % (9.6-15.2)
[2019-11-21] MEDS ORDERED: PROMETHAZINE 25 MG/ML, 1ML ONE (14:04)
[2019-11-21] MEDS ORDERED: DIPHENHYDRAMINE 50 MG/ML, 1ML ONE (14:04)
[2019-11-21] MEDS ORDERED: METOCLOPRAMIDE 5 MG/ML, 2ML ONE (14:04)
--- NOTE | 2019-11-21 14:11 | NUR ---
PT DECLINED ALL MEDS AND WANTS TO HOLD OFF ON IV, NAUSEA IMPROVED AT MOMENT.
[2019-11-21 14:12] LABS: ALANINE AMINOTRANSFERASE 24 U/L (12-78); ALBUMIN 3.9 g/dL (3.4-5.0); ALKALINE PHOSPHATASE 74 U/L (45-117); ANION GAP 10 mmol/L (5-15); BILIRUBIN,TOTAL 0.9 mg/dL (0.2-1.0); CALCIUM 9.1 mg/dL (8.5-10.1); CHLORIDE 93 mmol/L (98-107); CREATININE 0.99 mg/dL (0.55-1.02); TOTAL PROTEIN 8.5 g/dL (6.4-8.2)
[2019-11-21] MEDS ORDERED: POTASSIUM CHLORIDE 40 MEQ in SODIUM CHLORIDE 0.9% 500 ML IV ONE (14:30)
--- NOTE | 2019-11-21 15:30 | NUR ---
PT UNABLE TO KEEP DOWN PO FLUIDS. IV ESTABLSIHED.
--- NOTE | 2019-11-21 16:30 | NUR ---
PT RESTING, VSS. IVF
--- NOTE | 2019-11-21 17:00 | NUR ---
PT SITTING UP PLAYING ON PHONE, NO N/V AT THIS TIME. IVF, PLAN FOR ADMIT. CALL LIGHT IN REACH.
--- NOTE | 2019-11-21 17:26 | NUR ---
ATTEMPT CALL FOR REPORT
--- NOTE | 2019-11-21 17:38 | NUR ---
REPORT TO KEN
[2019-11-21] MEDS: NICOTINE 7 MG/24 HR PATCH.TD24 TD SCH (18:00)
[2019-11-21] MEDS ORDERED: BISACODYL 10 MG SUPP PR PRN (18:00)
[2019-11-21] MEDS: morphine SULFATE 10 MG/ML, 1ML IVPush PRN ×2 (18:46→21:58)
[2019-11-21] MEDS: ONDANSETRON 2MG/ML, 2ML IVPush PRN (21:05)
[2019-11-21 21:30] VITALS: BP 119/78
[2019-11-21] MEDS: NS + 20MEQ KCL 1,000 ML IV SCH (21:59)
[2019-11-22 00:39] VITALS: BP 102/57
[2019-11-22] MEDS: morphine SULFATE 10 MG/ML, 1ML IVPush PRN ×6 (02:14→21:35)
[2019-11-22] MEDS: NS + 20MEQ KCL 1,000 ML IV SCH ×3 (02:15→15:09)
[2019-11-22 05:10] LABS: BASOPHILS # (AUTO) 0.03 x10^3/uL (0-0.1); BASOPHILS % (AUTO) 1 % (0-1); EOSINOPHILS # (AUTO) 0.24 x10^3/uL (0-0.4); EOSINOPHILS % (AUTO) 4 % (1-7); LYMPHOCYTES # (AUTO) 2.91 x10^3/uL (1-3.4); LYMPHOCYTES % (AUTO) 48 % (22-44); MD NO; MEAN CORPUSCULAR HEMOGLOBIN 29.7 pg (27.0-34.8); MEAN CORPUSCULAR HGB CONC 33.3 g/dL (32.4-35.8); MEAN CORPUSCULAR VOLUME 89.1 fL (80-100); MEAN PLATELET VOLUME 7.8 fL (7.4-10.4); MONOCYTES # (AUTO) 0.54 x10^3/uL (0.2-0.8); MONOCYTES % (AUTO) 9 % (2-9); NEUTROPHILS # (AUTO) 2.38 x10^3/uL (1.8-6.8); NEUTROPHILS % (AUTO) 39 % (42-75); PLATELET COUNT 229 x10^3/uL (130-400); RED CELL DISTRIBUTION WIDTH 15.8 % (9.6-15.2)
[2019-11-22 05:11] LABS: ANION GAP 8 mmol/L (5-15); CALCIUM 7.9 mg/dL (8.5-10.1); CHLORIDE 108 mmol/L (98-107)
[2019-11-22 05:12] LABS: CREATININE 0.46 mg/dL (0.55-1.02)
[2019-11-22 06:10] VITALS: BP 101/56
[2019-11-22] MEDS: ONDANSETRON 2MG/ML, 2ML IVPush PRN ×2 (06:11→10:06)
[2019-11-22 07:46] VITALS: BP 94/59
[2019-11-22 12:59] VITALS: BP 122/66
[2019-11-22] MEDS: NICOTINE 7 MG/24 HR PATCH.TD24 TD SCH (15:10)
[2019-11-22] MEDS ORDERED: ENOXAPARIN 40 MG/0.4 ML SQ SCH (17:00)
[2019-11-22 17:59] VITALS: BP 135/76
[2019-11-22] MEDS: LACTATED RINGERS 1,000 ML IV SCH (18:12)
[2019-11-22 20:16] VITALS: BP 129/82
[2019-11-23] MEDS: morphine SULFATE 10 MG/ML, 1ML IVPush PRN ×3 (00:41→08:08)
[2019-11-23] MEDS: ONDANSETRON 2MG/ML, 2ML IVPush PRN (00:42)
[2019-11-23] MEDS: LACTATED RINGERS 1,000 ML IV SCH ×3 (01:23→14:50)
[2019-11-23 01:56] VITALS: BP 122/72
[2019-11-23 05:53] LABS: ANION GAP 13 mmol/L (5-15); CALCIUM 8.1 mg/dL (8.5-10.1); CHLORIDE 104 mmol/L (98-107); CREATININE 0.44 mg/dL (0.55-1.02)
[2019-11-23 07:06] VITALS: BP 105/67
[2019-11-23 09:26] LABS: TROPONIN I < 0.015 ng/mL (0.000-0.045)
[2019-11-23] MEDS ORDERED: DEXTROSE 4 GM TAB.CHEW PO PRN (10:00)
[2019-11-23] MEDS ORDERED: DEXTROSE 50%, 50ML SYRINGE IVPush PRN (10:00)
[2019-11-23] MEDS ORDERED: GLUCAGON 1 MG IM PRN (10:00)
[2019-11-23] MEDS ORDERED: HYDROcodone/APAP 5/325 TABLET ONE (11:58)
[2019-11-23] MEDS ORDERED: ACETAMINOPHEN 650 MG SUPP PR PRN (12:00)
[2019-11-23] MEDS ORDERED: HYDROcodone/APAP 5/325 TABLET PO PRN (12:00)
[2019-11-23 12:31] VITALS: BP 116/72
[2019-11-23] MEDS ORDERED: SODIUM CHLORIDE FLUSH 10ML SYR IVF SCH (21:00)
== END 2019-11-23 16:55 | disposition home or self-care (01) | DRG 282 ==
LOC: ED 17:18 → EDIP 17:57 → 3N 18:00 → 4EST 20:59
PROVIDERS: ADMIT Internal Medicine; ATTEND Internal Medicine
DX: K85.90 Acute pancreatitis without necrosis or infection, unspecified (principal); E87.1 Hypo-osmolality and hyponatremia; E87.6 Hypokalemia; F12.90 Cannabis use, unspecified, uncomplicated; F17.210 Nicotine dependence, cigarettes, uncomplicated; F41.1 Generalized anxiety disorder; G89.29 Other chronic pain; M19.90 Unspecified osteoarthritis, unspecified site; M54.9 Dorsalgia, unspecified; R00.1 Bradycardia, unspecified; Z79.899 Other long term (current) drug therapy; Z82.49 Family history of ischemic heart disease and other diseases of the circulatory system; Z90.711 Acquired absence of uterus with remaining cervical stump
CPT/HCPCS: 36415; 70450; 80048; 80053; 82962; 83690; 83735; 84484; 85025; 93005; 96374; 99285; G0378; J2405; J3480; J2270; J7030; J7040; J7120

== ENCOUNTER 2020-01-06 06:07 | Emergency (ER) | payer MEDICAID ==
[~2020-01-06] VITALS: Ht 147.3 cm; Wt 48.0 kg
[2020-01-06] MEDS ORDERED: METOCLOPRAMIDE 5 MG/ML, 2ML ONE (06:24)
[2020-01-06] MEDS ORDERED: SODIUM CHLORIDE FLUSH 10ML SYR IVF ONE (06:30)
[2020-01-06] MEDS ORDERED: METOCLOPRAMIDE 5 MG/ML, 2ML IVPush ONE (06:30)
--- NOTE | 2020-01-06 06:38 | NUR ---
Patient BIB ambulance c/o epigastric pain which radiates to left side x5-6 days. Patient reported to EMS that she was seen at [facility] for the same and was told "something is fucked up in my labs." Patient states the pain is worse today. She is also c/o vomiting with eating. Patient states she has a hx of pancreatitis and this feels the same. She states she has been drinking daily for approx one year after her boyfriend and she is trying to quit; her last drink was last 10/02. Patient is in NAD. Respirations even and unlabored.
--- NOTE | 2020-01-06 06:52 | NUR ---
SBAR RPT REC'D AND PT CARE ASSUMED. PT ON GURNEY, FULLY DRESSED. INSTRUCTED PT TO CHANGE INTO GOWN IN PREPERATION FOR ABD US. PT VERBALIZES UNDERSTANDING.
[2020-01-06 06:59] LABS: ALBUMIN 3.8 g/dL (3.4-5.0); ANION GAP 8 mmol/L (5-15); CALCIUM 9.8 mg/dL (8.5-10.1); CHLORIDE 109 mmol/L (98-107)
[2020-01-06 07:01] LABS: ALANINE AMINOTRANSFERASE 29 U/L (12-78); ALKALINE PHOSPHATASE 57 U/L (45-117); BILIRUBIN,TOTAL 0.6 mg/dL (0.2-1.0); CREATININE 0.67 mg/dL (0.55-1.02); TOTAL PROTEIN 7.8 g/dL (6.4-8.2)
[2020-01-06 07:16] LABS: BASOPHILS # (AUTO) 0.04 x10^3/uL (0-0.1); BASOPHILS % (AUTO) 1 % (0-1); EOSINOPHILS # (AUTO) 0.27 x10^3/uL (0-0.4); EOSINOPHILS % (AUTO) 4 % (1-7); LYMPHOCYTES # (AUTO) 3.26 x10^3/uL (1-3.4); LYMPHOCYTES % (AUTO) 43 % (22-44); MD NO; MEAN CORPUSCULAR HEMOGLOBIN 29.6 pg (27.0-34.8); MEAN CORPUSCULAR HGB CONC 32.6 g/dL (32.4-35.8); MEAN PLATELET VOLUME 7.5 fL (7.4-10.4); MONOCYTES # (AUTO) 0.47 x10^3/uL (0.2-0.8); MONOCYTES % (AUTO) 6 % (2-9); NEUTROPHILS # (AUTO) 3.47 x10^3/uL (1.8-6.8); NEUTROPHILS % (AUTO) 46 % (42-75); PLATELET COUNT 334 x10^3/uL (130-400); RED BLOOD COUNT 4.11 x10^6/uL (3.82-5.3); RED CELL DISTRIBUTION WIDTH 14.6 % (9.6-15.2)
[2020-01-06] MEDS ORDERED: MORPHINE SULFATE 4 MG/ML, 1ML ONE ×2 (07:40→08:42)
[2020-01-06] MEDS: MORPHINE SULFATE 4 MG/ML, 1ML IVPush PRN ×2 (07:49→08:44)
--- NOTE | 2020-01-06 07:51 | NUR ---
PT MED NOTED FOR PAIN. CALL LIGHT W/I REACH, VSS. PT AWARE OF NEED TO PROVIDE URINE SAMPLE
--- NOTE | 2020-01-06 08:24 | NUR ---
PT OOB AMBULATE TO BATHROOM, INSTRUCTED ON COLLECTION OF CC URINE SAMPLE. PAIN NOW 5/10 PT VERBALIZES "IT'S TOLLERABLE"
--- NOTE | 2020-01-06 08:30 | NUR ---
PT RTD TO ROOM W/O INCIDENT. BP AND SPO2 MONITORING IN PLACE, CALL LIGHT W/I REACH. URINE COLLECTED AND SENT TO LAB
[2020-01-06 08:43] LABS: MICROSCOPIC NOT IND
--- NOTE | 2020-01-06 08:46 | NUR ---
PT MED NOTED FOR PAIN 11/19. DR VENTURA AT BEDSIDE, POC TEST RESULTS REVIEWED AND QUESTIONS ANSWERED. UA RESULTS PENDING.
[2020-01-06 09:37] VITALS: BP 128/82
--- NOTE | 2020-01-06 09:41 | NUR ---
Patient/Caregiver given discharge instructions and they have confirmed that they understand the instructions. Patient ambulatory with steady gait.
== END 2020-01-06 09:42 | disposition home or self-care (01) ==
LOC: ED 08:12
DX: K86.0 Alcohol-induced chronic pancreatitis (principal); R11.2 Nausea with vomiting, unspecified; R10.824 Left lower quadrant rebound abdominal tenderness; R94.31 Abnormal electrocardiogram [ECG] [EKG]; Z88.1 Allergy status to other antibiotic agents; Z88.5 Allergy status to narcotic agent; Z88.6 Allergy status to analgesic agent
CPT/HCPCS: 36415; 76700; 80053; 81003; 83690; 84703; 85025; 93005; 96374; 96375; 96376; 99285; J2270; J2765

== ENCOUNTER 2020-01-25 16:45 | Emergency (ER) | payer MEDICAID ==
[~2020-01-25] VITALS: Ht 147.3 cm; Wt 42.9 kg
[2020-01-25] MEDS ORDERED: SODIUM CHLORIDE FLUSH 10ML SYR IVF ONE (17:00)
[2020-01-25] MEDS ORDERED: SODIUM CHLORIDE 0.9% 1,000ML IVBOLUS ONE (17:00)
--- NOTE | 2020-01-25 17:00 | NUR ---
PT BIB [facility] FROM HOME FOR LUQ ABD PAIN, N/V X 5 HOURS. PER PT, SHE HAS HAD PANCREATITIS FLARE UPS SINCE QUITTING DRINKING ABOUT 6 MONTHS AGO. PT WAS MEDICATED WITH ZOFRAN 4MG ODT EN ROUTE; EMS UNABLE TO ESTABLISH IV. PT ARRIVES TO ED SHAKING, NAUSEOUS, IN MODERATE DISTRESS D/T 8/10 ABD PAIN. A&OX4.
[2020-01-25 17:47] LABS: BASOPHILS # (AUTO) 0.04 x10^3/uL (0-0.1); BASOPHILS % (AUTO) 1 % (0-1); EOSINOPHILS # (AUTO) 0.15 x10^3/uL (0-0.4); EOSINOPHILS % (AUTO) 2 % (1-7); LYMPHOCYTES # (AUTO) 2.19 x10^3/uL (1-3.4); LYMPHOCYTES % (AUTO) 32 % (22-44); MD NO; MEAN CORPUSCULAR HEMOGLOBIN 29.7 pg (27.0-34.8); MEAN CORPUSCULAR HGB CONC 33.2 g/dL (32.4-35.8); MEAN CORPUSCULAR VOLUME 89.3 fL (80-100); MEAN PLATELET VOLUME 7.7 fL (7.4-10.4); MONOCYTES # (AUTO) 0.46 x10^3/uL (0.2-0.8); MONOCYTES % (AUTO) 7 % (2-9); NEUTROPHILS % (AUTO) 59 % (42-75); PLATELET COUNT 391 x10^3/uL (130-400); RED BLOOD COUNT 4.69 x10^6/uL (3.82-5.3); RED CELL DISTRIBUTION WIDTH 14.5 % (9.6-15.2)
[2020-01-25] MEDS ORDERED: ONDANSETRON 2MG/ML, 2ML ONE ×2 (17:49→19:12)
[2020-01-25] MEDS ORDERED: MORPHINE SULFATE 4 MG/ML, 1ML ONE (17:49)
[2020-01-25 17:53] LABS: ALANINE AMINOTRANSFERASE 23 U/L (12-78); ALBUMIN 3.6 g/dL (3.4-5.0); ANION GAP 5 mmol/L (5-15); CALCIUM 8.4 mg/dL (8.5-10.1); CHLORIDE 110 mmol/L (98-107); CREATININE 0.72 mg/dL (0.55-1.02)
[2020-01-25 17:57] LABS: ALKALINE PHOSPHATASE 53 U/L (45-117); BILIRUBIN,TOTAL 0.4 mg/dL (0.2-1.0); TOTAL PROTEIN 7.8 g/dL (6.4-8.2)
[2020-01-25] MEDS ORDERED: ONDANSETRON 2MG/ML, 2ML IVPush ONE ×2 (18:00→19:30)
[2020-01-25] MEDS ORDERED: MORPHINE SULFATE 4 MG/ML, 1ML IVPush PRN (18:00)
--- NOTE | 2020-01-25 18:10 | NUR ---
PT REPORTS FEELING BETTER AFTER MORPHINE & ZOFRAN. IVF INFUSING. PT UNDERSTANDS POC.
[2020-01-25] MEDS ORDERED: MAALOX/HYOSCYAMINE/LIDOCAINE 45 ML BTL ONE (18:36)
[2020-01-25] MEDS ORDERED: MAALOX/HYOSCYAMINE/LIDOCAINE 45 ML BTL PO ONE (19:00)
--- NOTE | 2020-01-25 19:00 | NUR ---
PT REPORTS SHE BECAME NAUSEOUS AND VOMITED AFTER GI COCTAIL. ERP NOTIFIED, KELI ORDERED.
[2020-01-25 19:14] VITALS: BP 121/84
--- NOTE | 2020-01-25 19:40 | NUR ---
JUICE PROVIDED TO PT. D/C INSTRUCTIONS, MEDS & F/U APPT RV'WD WITH PT, SHE VERBALIZES UNDERSTANDING. RX GIVEN X1. PT AMBULATED OUT OF ED WITHOUT DIFFICULTY, STATES A FRIEND WILL PICK HER UP.
== END 2020-01-25 19:44 | disposition home or self-care (01) ==
LOC: ED 19:20
DX: R10.13 Epigastric pain (principal); R10.84 Generalized abdominal pain; R11.2 Nausea with vomiting, unspecified; M19.90 Unspecified osteoarthritis, unspecified site; F17.200 Nicotine dependence, unspecified, uncomplicated; Z90.710 Acquired absence of both cervix and uterus
CPT/HCPCS: 36415; 80053; 83690; 84703; 85025; 96361; 96374; 96375; 96376; 99284; J2270; J2405; J7030